=== PATIENT | female | born 2000 | race African-American/Black ===

== ENCOUNTER 2024-08-29 18:30 | Emergency (ER) | payer MEDICAID ==
[~2024-08-29] VITALS: Ht 180.3 cm; Wt 81.8 kg
[2024-08-29 18:43] VITALS: TEMP 98.1
[2024-08-29 20:42] VITALS: BP 119/78; PULSE 78; RESP 18; O2SAT 98
[2024-08-29] MEDS: ONDANSETRON 4 MG TABLET PO ONE (20:52)
[2024-08-29] MEDS: ACETAMINOPHEN 500 MG TABLET PO ONE (20:52)
[2024-08-29 20:53] LABS: BASOPHILS % (AUTO) 0.8 % (0.0-2.0); EOSINOPHILS % (AUTO) 1.5 % (1.0-6.0); HEMATOCRIT 38.3 % (36-46); HEMOGLOBIN 12.1 g/dL (12.0-16.0); LYMPHOCYTES # (AUTO) 2.1 K/uL (1.0-4.8); LYMPHOCYTES % (AUTO) 29.1 % (22.0-44.0); MEAN CORPUSCULAR HEMOGLOBIN 25.3 pg (26.0-34.0); MEAN CORPUSCULAR HGB CONC 31.5 G/dL (31.0-37.0); MEAN CORPUSCULAR VOLUME 80 fL (80-100); MONOCYTES # (AUTO) 0.3 K/uL (0.1-1.0); MONOCYTES % (AUTO) 4.7 % (2.0-9.0); NEUTROPHILS # (AUTO) 4.7 K/uL (1.8-7.7); NEUTROPHILS % (AUTO) 63.9 % (40.0-70.0); PLATELET COUNT (AUTO) 254 K/uL (150-450); RED BLOOD CELL COUNT(AUTO) 4.77 MIL/uL (4.00-5.20); RED CELL DISTRIBUTION WIDTH 13.9 % (11.5-14.5); WHITE BLOOD COUNT (AUTO) 7.3 K/uL (4.5-11.0)
[2024-08-29] MEDS: IBUPROFEN 600 MG TABLET PO ONE (20:53)
[2024-08-29 21:06] LABS: ANION GAP 8 mmol/L (8-16); CALCIUM, TOTAL 8.7 mg/dL (8.8-10.5); CARBON DIOXIDE 27 mmol/L (22-29); CHLORIDE 102 mmol/L (98-107); CREATININE 0.99 mg/dL (0.60-1.30); GLOMERULAR FILTR. RATE CALC > 60 mL/min (>60); GLUCOSE,RANDOM 96 mg/dL (70-110); POTASSIUM 4.1 mmol/L (3.5-5.1); SODIUM SERUM 137 mmol/L (136-145); UREA NITROGEN, BLOOD 11 mg/dL (7-18)
[2024-08-29] MEDS ORDERED: IBUP-1554 PO (21:28)
[2024-08-29] MEDS ORDERED: ACET-66 PO (21:28)
== END 2024-08-29 21:53 | disposition home or self-care (01) ==
LOC: EMS 18:30
DX: R51.9 Headache, unspecified (principal)
CPT/HCPCS: 99284; 80048; 84703; 85025; 36415; Q0162

== ENCOUNTER 2024-09-28 16:51 | Emergency (ER) | payer MEDICAID ==
[~2024-09-28] VITALS: Ht 180.3 cm; Wt 90.9 kg
[~2024-09-28 16:51] MED LIST: ACET-66 PO; IBUP-1554 PO
[2024-09-28 17:03] VITALS: BP 125/92; PULSE 83; RESP 18; TEMP 98.4; O2SAT 100
[2024-09-28] MEDS: ACETAMINOPHEN 500 MG TABLET PO ONE (19:01)
== END 2024-09-28 19:08 | disposition home or self-care (01) ==
LOC: EMS 16:51
DX: H53.2 Diplopia (principal); Z79.899 Other long term (current) drug therapy
CPT/HCPCS: 99282; Z7502; Z7610